=== PATIENT | male | born 1990 | race Caucasian/White ===

== ENCOUNTER 2024-02-24 22:54 | Emergency (ER) | payer BC, SELFPAY ==
[2024-02-24 22:55] VITALS: BP 148/83; PULSE 78; RESP 18; TEMP 36.6; O2SAT 98; BMI 29.5
[2024-02-24 22:59] VITALS: BP 148/83; PULSE 77; RESP 18; O2SAT 96
--- NOTE | 2024-02-24 22:59 | ED_ITS ---
HPI - Back Pain/Injury General: Chief Complaint: Back Pain/Injury Stated Complaint: back pain Time Seen by Provider: 02/24/24 22:59 History of Present Illness: 34-year-old male patient comes in today with low back pain. Patient reports he was cutting wood this afternoon when he strained his back. Patient reports he has a history of sciatica and a bulging disc. Patient states it has been about 10 years since he had a last flareup. Review of Systems General: Reports: 10 or more systems reviewed and unremarkable except in HPI and below Musc: Reports: back pain Physical Exam Const: COMMON NORMALS: alert HENMT: COMMON NORMALS: normocephalic HEAD & SCALP: normocephalic Neck/C-Spine: COMMON NORMALS: full ROM Resp: COMMON NORMALS: normal respiratory effort Cardio: COMMON NORMALS: regular rate RATE: regular rate Back/Pelvis: LUMBAR SPINE/LOWER BACK: Yes paraspinal muscle tenderness Extremity: COMMON NORMALS: normal to inspection Neuro: SENSORIUM/ORIENTATION: Yes alert Skin: COMMON NORMALS: turgor normal GENERAL SKIN EXAM: turgor normal Course Vital Signs: Vital signs: Vital Signs Temperature 97.8 F 02/24/24 22:55 Pulse Rate 77 02/24/24 22:59 Respiratory Rate 18 02/24/24 22:59 Blood Pressure 148/83 02/24/24 22:59 Pulse Oximetry 96 02/24/24 22:59 Oxygen Delivery Me thod Room Air 02/24/24 22:55 MDM - Back Pain/Injury Medical Decision Making Patient came in today for complaints of injury to his low back. Patient was chopping wood when he strained his back. Patient denies loss of bowel or bladder control. No sign of cauda equina syndrome. Differential diagnosis lumbar strain, intervertebral disc disease, facet arthropathy. Patient was given a dose of ketorolac and orphenadrine. Patient was recommended to maintain activity as tolerated. Patient was written for prescriptions of diclofenac and Flexeril for his pain. No radiology studies performed this visit Discharge Plan Discharge Patient Disposition: Home Clinical Impression: Sciatica Qualifiers: Laterality: left Qualified Code(s): M54.32 - Sciatica, left side Condition: Stable Prescriptions: New cyclobenzaprine 5 mg tablet 5 mg PO TID PRN (Reason: muscle spasm) Qty: 15 0RF diclofenac potassium 25 mg tablet 25 mg PO Q6H PRN (Reason: pain) Qty: 15 0RF Discharge Orders: Discharge ED (Routine); Ordered 02/25/24 Ordered By: Edgard Lombardo Discharge Diet: Usual diet Discharge Activity: Increase activity as tolerated Patient Instructions: Sciatica (ED) Activity Restrictions/Additional Instructions: Activity as tolerated. Gentle stretching and range of motion exercises. Follow-up with primary care for further instructions. Return to ED for new concerns. Coding Level of Care Code ED [employer] Administrator Developer for Papito Cabrera
[2024-02-24] MEDS: orphenadrine 30 mg/mL Inj 2 mL 60 MG IM (23:17)
[2024-02-24] MEDS: ketorolac 30 mg/mL INJ IM (23:17)
[2024-02-25 00:22] VITALS: BP 148/83; PULSE 77; RESP 18; TEMP 36.6; O2SAT 96
== END 2024-02-25 00:25 | disposition home or self-care (01) ==
PROVIDERS: Emergency Provider Nurse Practitioner Family
DX: M54.32 Sciatica, left side (principal)
CPT/HCPCS: 96372; 99284; J1885; J2360